=== PATIENT | female | born 1990 | race Caucasian/White ===

== ENCOUNTER 2019-04-07 09:13 | Inpatient (IN) | payer MEDICAID ==
[~2019-04-07] VITALS: Ht 154.9 cm; Wt 90.9 kg
[2019-04-10 12:42] VITALS: BP 144/94
== END 2019-04-10 16:41 | disposition home or self-care (01) | DRG 560 ==
LOC: LDOP 09:13 → LDIP 11:32 → 2NE 04-08 09:07 → 2NW 04-09 04:30
PROVIDERS: ADMIT Student in an Organized Health Care Education/Training Program; ATTEND Student in an Organized Health Care Education/Training Program
PROC: 10E0XZZ Delivery of Products of Conception, External Approach (ICD-10-PCS; principal; 2019-04-08)
PROC: 0HQ9XZZ Repair Perineum Skin, External Approach (ICD-10-PCS; 2019-04-08)
PROC: 10907ZC Drainage of Amniotic Fluid, Therapeutic from Products of Conception, Via Natural or Artificial Opening (ICD-10-PCS; 2019-04-08)
PROC: 3E033VJ Introduction of Other Hormone into Peripheral Vein, Percutaneous Approach (ICD-10-PCS; 2019-04-08)
PROC: 10H07YZ Insertion of Other Device into Products of Conception, Via Natural or Artificial Opening (ICD-10-PCS; 2019-04-08)
PROC: 3E0R3BZ Introduction of Anesthetic Agent into Spinal Canal, Percutaneous Approach (ICD-10-PCS; 2019-04-08)
PROC: 00HU33Z Insertion of Infusion Device into Spinal Canal, Percutaneous Approach (ICD-10-PCS; 2019-04-08)
DX: O14.14 Severe pre-eclampsia complicating childbirth (principal); O99.344 Other mental disorders complicating childbirth; F31.9 Bipolar disorder, unspecified; Z37.0 Single live birth; O70.0 First degree perineal laceration during delivery; Z3A.38 38 weeks gestation of pregnancy; O69.1XX0 Labor and delivery complicated by cord around neck, with compression, not applicable or unspecified; O76 Abnormality in fetal heart rate and rhythm complicating labor and delivery; O77.0 Labor and delivery complicated by meconium in amniotic fluid
CPT/HCPCS: 36415; 80053; 80307; 81001; 82248; 82570; 82803; 83735; 84156; 84550; 85025; 86850; 86900; G0378; J2405; J3490; J2590; J3010; J3475; J7120; J7121